=== PATIENT | female | born 1980 | race Two or more races ===

== ENCOUNTER 2024-12-23 10:02 | Emergency (ER) | payer MEDICAID, MEDICARE, OTHER ==
[~2024-12-23] VITALS: Ht 152.4 cm; Wt 72.1 kg
[~2024-12-23 10:02] MED LIST: COGENTIN; RISPERDAL PO
[2024-12-23 10:11] VITALS: BP 106/75
[2024-12-23] MEDS: IV NORMAL SALINE 1000 ML BAG IV ONE (10:15)
[2024-12-23] MEDS ORDERED: RISP3TAB5 PO (10:16)
[2024-12-23] MEDS ORDERED: LAMO150T2 PO (10:16)
[2024-12-23] MEDS ORDERED: ARIP5TAB10 PO (10:16)
[2024-12-23 10:35] LABS: PLATELET COUNT (AUTO) 329 K/uL (179-408); RED BLOOD CELL COUNT(AUTO) 3.83 MIL/uL (3.63-4.92); RED CELL DISTRIBUTION WIDTH 13.2 % (12.3-17.7); WHITE BLOOD COUNT (AUTO) 6.7 K/uL (3.8-11.8)
[2024-12-23 10:52] LABS: CREATININE 0.7 mg/dL (0.6-1.3); SODIUM SERUM 140 mmol/L (136-145); UREA NITROGEN, BLOOD 7 mg/dL (7-18)
[2024-12-23 11:24] LABS: *BILIRUBIN,URIN NEGATIVE (NEGATIVE); *BLOOD, URINE NEGATIVE (NEGATIVE); *CLARITY,URINE CLEAR (CLEAR); *COLOR,URINE YELLOW (YELLOW); *KETONES,URINE TRACE (NEGATIVE); *PROTEIN,URINE 1+ (NEGATIVE); *UROBILINOGEN,URINE 0.2 E.U./dl (NORMAL); LEUKOCYTE ESTERASE ,URINE NEGATIVE (NEGATIVE); NITRITE, URINE NEGATIVE (NEGATIVE); UGLUCOSE NEGATIVE (NEGATIVE)
[2024-12-23 11:29] LABS: *URINE HCG, QUAL NEGATIVE (NEGATIVE)
[2024-12-23 11:36] LABS: SQUAMOUS EPITHELIAL CELL,UR MANY /HPF (NONE SEEN)
[2024-12-23 11:42] LABS: OTHER CASTS, URINE WBC CASTS 0-2 /LPF (None Seen)
[2024-12-23 12:23] VITALS: BP 106/75; TEMP 97.8; O2SAT 95
== END 2024-12-23 12:24 | disposition home or self-care (01) ==
LOC: ER 10:02
DX: R55 Syncope and collapse (principal); R42 Dizziness and giddiness; R11.0 Nausea; R06.00 Dyspnea, unspecified; F31.9 Bipolar disorder, unspecified; Z79.899 Other long term (current) drug therapy
CPT/HCPCS: 99285; 96360; 71045; 96361; 80048; 81001; 82962; 84703; 83735; 84100; 84443; 85025; 87086; 84484; 36415; 93005; J7040; A4606; A4663